=== PATIENT | male | born 1955 | race Caucasian/White ===

== ENCOUNTER 2024-07-23 07:57 | Outpatient (CLI) | payer MEDICARE, OTHER, SELFPAY ==
--- NOTE | ~2024-07-23 | CT_ITS ---
CT of the Abdomen and Pelvis: Indication: Microscopic hematuria Technique: 2.5 mm axial scans were obtained through the abdomen and pelvis prior to and following in travenous administration of 130 cc of Omnipaque 350. Dose reduction technique was used on this scan b y utilizing automated exposure control and iterative reconstruction technique. The dose-length produc t (DLP) was 1921.64 mGy-cm. Findings: Scans through the lung bases are unremarkable. Punctate nonobstructing right renal stone present. 3 mm left lower pole nonobstructing renal stone pr esent. There is diffuse hepatic steatosis. The spleen, pancreas, gallbladder, and adrenal glands are within normal limits. No evidence of aortic aneurysm. No lymphadenopathy. No bowel obstruction or bowel wall thickening. There is no evidence to suggest acute appendicitis. Images through the pelvis were performed. Urinary bladder unremarkable. Prostate gland enlarged. Smal l fat-containing left inguinal hernia present. No ascites. Impression: Small nonobstructing renal stones, as above. Small fat-containing left inguinal hernia. Diffuse hepatic steatosis. Reviewed, dictated and finalized at location . [facility]ER Impression: Small nonobstructing renal stones, as above. Small fat-containing left inguinal hernia. Diffuse hepatic steatosis.
[2024-07-23 08:21] LABS: Estimated Glomerular Filt Rate 60
== END 2024-07-23 07:58 | disposition home or self-care (01) ==
PROVIDERS: PCP Pediatrics; Visit Provider Urology
DX: N20.0 Calculus of kidney (principal); K76.0 Fatty (change of) liver, not elsewhere classified; K40.90 Unilateral inguinal hernia, without obstruction or gangrene, not specified as recurrent
CPT/HCPCS: 74178; Q9967